=== PATIENT | female | born 1965 | race African-American/Black ===

== ENCOUNTER 2024-11-18 11:41 | Emergency (ER) | payer MEDICAID, OTHER ==
[~2024-11-18] VITALS: Ht 165.1 cm; Wt 112.0 kg
[2024-11-18 11:43] VITALS: O2SAT 98
[2024-11-18 12:21] LABS: BASOPHILS % 0.9 % (0.0-2.0); EOSINOPHILS % 5.9 % (0.0-5.0); HEMATOCRIT. 43.5 % (36.0-48.0); HEMOGLOBIN. 13.9 g/dL (12.0-16.0); LYMPHOCYTES % 29.5 % (20.0-50.0); MEAN CORPUSCULAR HEMOGLOBIN 29.6 pg (28.0-32.0); MEAN CORPUSCULAR HGB CONC 31.9 g/dL (31.0-37.0); MEAN CORPUSCULAR VOLUME 92.9 fL (81.0-99.0); MEAN PLATELET VOLUME 9.5 fl (7.4-10.4); MONOCYTES % 7.9 % (2.0-8.0); NEUTROPHILS % 55.8 % (40.0-76.0); PLATELET 237 x1000/uL (130-400); RED BLOOD CELL COUNT 4.69 mill/uL (4.2-5.4); RED CELL DISTRIBUTION WIDTH 14.1 % (11.6-14.6); WHITE BLOOD COUNT 7.8 x1000/uL (4.5-11.0)
[2024-11-18] MEDS: PIPERACILLIN/TAZO 3.375G/50ML 50 ML IV ONE (12:30)
[2024-11-18 12:31] LABS: CHLORIDE 104 mEq/L (98-107); POTASSIUM 3.5 mEq/L (3.5-5.1); SODIUM 138 mEq/L (136-145)
[2024-11-18] MEDS: SODIUM CHLORIDE 0.9% (SEPSIS BOLUS) IV ONE (12:31)
[2024-11-18 12:32] LABS: CARBON DIOXIDE 26 mEq/L (21-32)
[2024-11-18 12:37] LABS: CREATININE 0.9 mg/dL (0.6-1.0); GLUCOSE 103 mg/dL (70-105); UREA NITROGEN BLOOD 13 mg/dL (9-23)
[2024-11-18 12:39] LABS: ALANINE AMINOTRANSFERASE 40 IU/L (10-49); ALBUMIN 4.2 g/dL (3.2-4.8); ASPARTATE AMINOTRANSFERASE 38 IU/L (<34); BILIRUBIN DIRECT 0.2 mg/dL (<=3.0)
[2024-11-18 12:40] LABS: BILIRUBIN TOTAL 0.7 mg/dL (0.1-1.0); PROTEIN TOTAL 8.2 g/dL (6.0-8.3)
[2024-11-18 13:01] LABS: PROTHROMBIN TIME 11.2 sec (9.6-11.0)
[2024-11-18] MEDS: VANCOMYCIN 1G PREMIX 200 ML IV ONE (13:10)
[2024-11-18 13:37] LABS: TROPONIN I HIGH SENSITIVITY < 4 ng/L (3.0-34)
[2024-11-18 15:14] VITALS: BP 130/76; PULSE 68; RESP 13; TEMP 36.7; O2SAT 96
== END 2024-11-18 15:21 | disposition admitted as inpatient to this hospital (09) ==
LOC: ER 11:41
DX: R55 Syncope and collapse (principal); I10 Essential (primary) hypertension
CPT/HCPCS: 80076; 80048; 83605; 85025; 85610; 87040; 84484; 36415; 84145; 71045; 93005; 96367; 96365; 99291; J2543; J3370; J7030; Z7610 ×3; A4606